=== PATIENT | female | born 1970 | race Caucasian/White ===

== ENCOUNTER 2016-12-13 15:29 | Emergency (ER) | payer BC ==
[2016-12-13] MEDS ORDERED: MAG HYDROX/AL HYDROX/SIMETH 30 ML, HYOSCYAMINE ELIXIR 10 ML, CIMETIDINE HCL 300 MG, LID... PO STA ×4 (16:40)
[2016-12-13 16:52] LABS: Basophils % (A) 0 %; CH 30.4; CHCM 34.6; Eosinophils % (A) 0 %; HCT 43.1 % (34.0-46.0); HDW 2.87; HGB 14.5 gm/dL (11.4-16.0); Luc # (Auto) 0.21; Luc % (Auto) 2; Lymphocytes % (A) 11 %; MCH 29.7 pg (25.0-35.0); MCHC 33.6 g/dL (31.0-37.0); MCV 88.3 fL (80.0-100.0); Mean Platelet Volume 7.4; Monocytes # (A) 0.3 k/uL (0-1.0); Monocytes % (A) 4 %; Neutrophils # (A) 7.9 k/uL (1.3-7.7); Neutrophils % (A) 83 %; RBC 4.88 m/uL (3.80-5.40); RDW 13.5 % (11.5-15.5); WBC 9.5 k/uL (3.8-10.6); WBC (Perox) 9.08
--- NOTE | 2016-12-13 17:02 | XR ---
EXAMINATION TYPE: XR chest 2V DATE OF EXAM: 12/13/2016 4:56 PM COMPARISON: 04/20/2013 TECHNIQUE: PA and lateral views submitted. HISTORY: Chest congestion FINDINGS: The lungs are clear and there is no pneumothorax, pleural effusion, or focal pneumonia. Hyperinflat ion suggests COPD. IMPRESSION: 1. No acute process.
--- NOTE | 2016-12-13 17:13 | ED ---
General Adult HPI - General Chief complaint: Recheck/Abnormal Lab/Rx Stated complaint: Rapid Heart Beat/Burning Time Seen by Provider: 12/13/16 16:36 Source: patient, RN notes reviewed, old records reviewed Mode of arrival: wheelchair Limitations: no limitations - History of Present Illness Initial comments: This is a 38-year-old female ER for evaluation of heart palpitations chest pain fluttering chest pain rating down the middle of her stomach and burning. Patient states she's been doing with cough and upper respiratory infection for a day or so. She did take Sudafed last night with no improvement, did call EMS this morning at about 2 AM and the left runaway as her vital signs are normal and stable. Patient states symptoms have persisted. Denies nausea vomiting does not feel right, still complaining of chest pain although it is episodic. No travel history nor second DVT no significant medical history - Related Data Home Medications Medication Instructions Recorded Confirmed Ibuprofen [Motrin] 800 mg PO Q8HR PRN 09/20/15 12/13/16 Phenylephrine HCl [Sudafed PE] 10 mg PO Q6H PRN 12/13/16 12/13/16 Allergies Allergy/AdvReac Type Severity Reaction Status Date / Time Sulfa (Sulfonamide Allergy Unknown Rash/Hives, Verified 12/13/16 16:24 Antibiotics) Itching Review of Systems ROS Statement: Those systems with pertinent positive or pertinent negative responses have been documented in the HPI. ROS Other: All systems not noted in ROS Statement are negative. Past Medical History Past Medical History: Musculoskeletal Disorder Additional Past Medical History / Comment(s): DEGENERATIVE CERVICAL DISC , BONE SPUR LEFT SHOULDER History of Any Multi-Drug Resistant Organisms: None Reported Past Surgical History: Orthopedic Surgery Additional Past Surgical History / Comment(s): LAPAROSCOPY W/ D&C, D&C, left shoulder Past Anesthesia/Blood Transfusion Reactions: Motion Sickness, Postoperative Nausea & Vomiting (PONV) Past Psychological History: No Psychological Hx Reported Smoking Status: Never smoker Past Alcohol Use History: Occasional Past Drug Use History: None Reported - Past Family History Mother Brother(s) Family Medical History: Cancer Additional Family Medical History / Comment(s): HODGKINS LYMPHOMA General Exam Limitations: no limitations General appearance: alert, in no apparent distress, anxious Head exam: Present: atraumatic, normocephalic, normal inspection Eye exam: Present: normal appearance, PERRL, EOMI. Absent: scleral icterus, conjunctival injection, periorbital swelling ENT exam: Present: normal exam, mucous membranes moist Neck exam: Present: normal inspection. Absent: tenderness, meningismus, lymphadenopathy Respiratory exam: Present: normal lung sounds bilaterally. Absent: respiratory distress, wheezes, rales, rhonchi, stridor Cardiovascular Exam: Present: regular rate, normal rhythm, tachycardia, normal heart sounds. Absent: systolic murmur, diastolic murmur, rubs, gallop, clicks GI/Abdominal exam: Present: soft, normal bowel sounds. Absent: distended, tenderness, guarding, rebound, rigid Extremities exam: Present: normal inspection, full ROM, normal capillary refill. Absent: tenderness, pedal edema, joint swelling, calf tenderness Back exam: Present: normal inspection Neurological exam: Present: alert, oriented X3, CN II-XII intact Psychiatric exam: Present: normal affect, normal mood Skin exam: Present: warm, dry, intact, normal color. Absent: rash Course Vital Signs 12/13/16 12/13/16 12/13/16 15:48 16:37 17:22 Temperature 97.8 F Pulse Rate 89 78 Pulse Rate [ 84 Parent Partner ] Respiratory 20 20 18 Rate Blood Pressure 142/75 143/67 O2 Sat by Pulse 98 99 Oximetry - Reevaluation(s) Reevaluation #1: 12/13/16 18:55 Patient's symptoms resolving with IV fluid, patient has no chest pain no shortness of breath no bowel pain recheck. Reevaluation #2: 12/13/16 18:55 Patient consulted regarding life-threatening causes of pain and tachycardia and palpitations that she was. Experiencing Questions are answered, patient will continue outpatient therapy for bronchitis EKG Findings - EKG Comments: EKG Findings:: EKG shows normal sinus rhythm rate of 75 OK 144, QRS 76, QTC 437 Medical Decision Making - Medical Decision Making 46 female the ER for evaluation of cough and chest pain. Patient has lab work and CT they're normal. Symptoms started last night. She's been outpatient care for bronchitis since yesterday. She did take Sudafed which could have definitely contributed to her symptoms of tachycardia. Otherwise patient at this time is no complaint some shortness of breath no bowel pain no chest pain. No diaphoresis nausea fevers. Patient's labwork is normal can be discharged - Lab Data Result diagrams: 12/13/16 16:35 12/13/16 17:16 Lab Results 12/13/16 12/13/16 12/13/16 Range/Units 16:35 16:35 17:16 WBC 9.5 (3.8-10.6) k/uL RBC 4.88 (3.80-5.40) m/uL Hgb 14.5 (11.4-16.0) gm/dL Hct 43.1 (34.0-46.0) % MCV 88.3 (80.0-100.0) fL MCH 29.7 (25.0-35.0) pg MCHC 33.6 (31.0-37.0) g/dL RDW 13.5 (11.5-15.5) % Plt Count 232 (150-450) k/uL Neutrophils % 83 % Lymphocytes % 11 % Monocytes % 4 % Eosinophils % 0 % Basophils % 0 % Neutrophils # 7.9 H (1.3-7.7) k/uL Lymphocytes # 1.0 (1.0-4.8) k/uL Monocytes # 0.3 (0-1.0) k/uL Eosinophils # 0.0 (0-0.7) k/uL Basophils # 0.0 (0-0.2) k/uL Sodium 141 (137-145) mmol/L Potassium 3.9 (3.5-5.1) mmol/L Chloride 103 (98-107) mmol/L Carbon Dioxide 24 (22-30) mmol/L Anion Gap 14 mmol/L BUN 6 L (7-17) mg/dL Creatinine 0.79 (0.52-1.04) mg/dL Est GFR (MDRD) Af Amer >60 (>60 ml/min/1.73 sqM) Est GFR (MDRD) Non-Af >60 (>60 ml/min/1.73 sqM) Glucose 135 H (74-99) mg/dL Calcium 9.4 (8.4-10.2) mg/dL Total Bilirubin 0.7 (0.2-1.3) mg/dL AST 19 (14-36) U/L ALT 26 (9-52) U/L Alkaline Phosphatase 56 (38-126) U/L Total Creatine Kinase 56 (30-135) U/L CK-MB (CK-2) <0.2 (0.0-2.4) ng/mL CK-MB (CK-2) Rel Index Troponin I <0.012 (0.000-0.034) ng/mL Total Protein 7.8 (6.3-8.2) g/dL Albumin 4.4 (3.5-5.0) g/dL Lipase 80 (23-300) U/L TSH 3.170 (0.465-4.680) mIU/L - Radiology Data Radiology results: report reviewed (Chest x-ray and CT are negative for acute disease, CT might show right upper lobe pneumonia), image reviewed Disposition Clinical Impression: Upper respiratory infection, Palpitations Disposition: HOME SELF-CARE Condition: Good Instructions: Acute Bronchitis (ED), Palpitations (ED) Referrals: Carolyn Gonzalez MD [Primary Care Provider] - 1-2 days
[2016-12-13 17:14] LABS: Creatine Kinase 56 U/L (30-135)
[2016-12-13 17:25] LABS: Creatine Kinase MB <0.2 ng/mL (0.0-2.4); Troponin I <0.012 ng/mL (0.000-0.034)
[2016-12-13 17:32] LABS: ALT 26 U/L (9-52); AST 19 U/L (14-36); Alkaline Phosphatase 56 U/L (38-126); Anion Gap 14 mmol/L; Blood Urea Nitrogen 6 mg/dL (7-17); Calcium 9.4 mg/dL (8.4-10.2); Carbon Dioxide 24 mmol/L (22-30); Chloride 103 mmol/L (98-107); Glucose 135 mg/dL (74-99); Non-African American GFR(MDRD) >60 (>60 ml/min/1.73 sqM); Potassium 3.9 mmol/L (3.5-5.1); Sodium 141 mmol/L (137-145); Total Bilirubin 0.7 mg/dL (0.2-1.3); Total Protein 7.8 g/dL (6.3-8.2)
[2016-12-13] MEDS ORDERED: SODIUM CHLORIDE 0.9% 2,000 ML IV STA (17:32)
[2016-12-13] MEDS: RX INFO: IV CONTRAST WAS GIVEN 1 EACH MISC MISCELLANE PRN (17:45)
--- NOTE | 2016-12-13 18:42 | CT ---
EXAMINATION TYPE: CT angio chest DATE OF EXAM: 12/13/2016 6:37 PM COMPARISON: 04/21/2013 HISTORY: Heart palpitations and chest burning. CT DLP: 544.00 mGycm CONTRAST: CT chest with contrast and 3D reconstruction with MIP imaging is performed with IV Contrast, patient injected with 80 mL of Omnipaque 300. Contrast-enhanced CT of the chest was performed through the course of the pulmonary arteries with emeka g and mediastinal window settings submitted. 3D reconstruction with MIP imaging was also performed. PULMONARY ARTERIES: The pulmonary arteries and their major tributaries are patent. I do not see rome dence for sizable filling defect to suggest pulmonary embolic process. LUNGS: Left upper lobe nodular infiltrate mild in degree is nonspecific. Correlate clinically and pro essence studies are recommended. No evidence for atelectasis. No pulmonary nodule or mass is detected . No pleural effusion. MEDIASTINUM: Thoracic aorta is of normal caliber . The heart is not enlarged. No evidence for media stinal mass. No mediastinal lymph nodes greater than 1cm. HILAR STRUCTURES: No evidence for mass. No hilar lymph nodes greater than 1 cm. UPPER ABDOMEN: No significant abnormality is seen. IMPRESSION: 1. No evidence for Pulmonary embolism at this time. 2.Left upper lobe nodular infiltrate mild in degree is nonspecific. Correlate clinically and progress studies are recommended.
[2016-12-13 18:58] LABS: Partial Thromboplastin Time 22.5 sec (22.0-30.0); Prothrombin Time 10.3 sec (9.0-12.0)
[2016-12-13 19:35] VITALS: BP 139/68; PULSE 82; RESP 16; TEMP 98
== END 2016-12-13 19:34 | disposition home or self-care (01) ==
LOC: EC 15:29
DX: J06.9 Acute upper respiratory infection, unspecified (principal); R00.2 Palpitations; Z88.2 Allergy status to sulfonamides
CPT/HCPCS: 36415; 93005; 85379; 80053; 82550; 82553; 83690; 84443; 84484; 85025; 85610; 85730; 71020; 71275; 96360; 96361; 99285; Q9967

== ENCOUNTER → 2017-02-11 | Outpatient (CLI) | payer BC ==
[2017-02-11 10:17] LABS: Basophils # (A) 0.1 k/uL (0-0.2); Basophils % (A) 1 %; CH 30.7; CHCM 35.3; Eosinophils # (A) 0.2 k/uL (0-0.7); Eosinophils % (A) 2 %; HCT 43.7 % (34.0-46.0); HDW 2.95; Luc # (Auto) 0.13; Luc % (Auto) 2; Lymphocytes # (A) 1.9 k/uL (1.0-4.8); Lymphocytes % (A) 22 %; MCH 30.1 pg (25.0-35.0); MCHC 34.4 g/dL (31.0-37.0); MCV 87.6 fL (80.0-100.0); Mean Platelet Volume 7.4; Monocytes # (A) 0.6 k/uL (0-1.0); Monocytes % (A) 7 %; Neutrophils # (A) 5.6 k/uL (1.3-7.7); Neutrophils % (A) 66 %; RBC 4.99 m/uL (3.80-5.40); RDW 13.7 % (11.5-15.5); WBC 8.5 k/uL (3.8-10.6); WBC (Perox) 8.17
[2017-02-11 10:43] LABS: ALT 18 U/L (9-52); AST 17 U/L (14-36); Alkaline Phosphatase 62 U/L (38-126); Anion Gap 11 mmol/L; Blood Urea Nitrogen 8 mg/dL (7-17); Calcium 9.4 mg/dL (8.4-10.2); Carbon Dioxide 26 mmol/L (22-30); Chloride 105 mmol/L (98-107); Cholesterol 194 mg/dL (<200); Glucose 105 mg/dL (74-99); HDL Cholesterol 53 mg/dL (40-60); Non-African American GFR(MDRD) >60 (>60 ml/min/1.73 sqM); Potassium 3.8 mmol/L (3.5-5.1); Sodium 142 mmol/L (137-145); Total Bilirubin 0.8 mg/dL (0.2-1.3); Total Protein 7.6 g/dL (6.3-8.2); Triglycerides 94 mg/dL (<150)
[2017-02-11 11:26] LABS: Vitamin B12 578 pg/mL (239-931)
== END | disposition home or self-care (01) ==
LOC: LABWHC1 09:09
PROVIDERS: ATTEND Family Medicine
DX: Z00.00 Encounter for general adult medical examination without abnormal findings (principal); R53.83 Other fatigue
CPT/HCPCS: 36415; 80053; 80061; 82607; 83735; 84443; 85025

== ENCOUNTER → 2017-02-15 | Outpatient (CLI) | payer BC ==
--- NOTE | 2017-03-20 12:37 | EM ---
DATE OF SERVICE: AGE: 46Y SEX: F INDICATIONS: EVENT MONITOR DATE OF THE STUDY: 02/15/2017 TO 03/16/2017 The patient was monitored for 4 weeks. The baseline rhythm appeared to be a sinus mechanism. The patient had multiple episodes of sinus tachycardia and sinus bradycardia as well. There is no evidence of any advanced AV block noted. There is no evidence of any sinus pause or sinus arrest noted as well during these 4 weeks. CONCLUSION: 1. This is a 4-week event monitor. 2. Sinus rhythm was baseline mechanism. 3. The patient had multiple episodes of sinus tachycardia. 4. Multiple episodes of sinus bradycardia. 5. There is no evidence of any advanced AV block noted. 6. There is no evidence of sinus pause or sinus arrest. 7. The patient had one episode of paroxysmal atrial tachycardia noted.
== END | disposition home or self-care (01) ==
LOC: RADECHMAIN 11:54
PROVIDERS: ATTEND Family Medicine
DX: I47.1 Supraventricular tachycardia (principal)
CPT/HCPCS: 93270; 93271

== ENCOUNTER → 2017-02-26 | Outpatient (CLI) | payer BC ==
--- NOTE | 2017-02-26 09:44 | US ---
EXAMINATION TYPE: US abdomen complete DATE OF EXAM: 02/26/2017 8:41 AM COMPARISON: NONE CLINICAL HISTORY: R11.0 Nausea,R10.13 Epigastric pain. Abdominal pain, nausea, bloating x 3-4 weeks EXAM MEASUREMENTS: Liver Length: 14.3 cm Gallbladder Wall: 0.4 cm CBD: 0.5 cm Spleen: 11.4 cm Right Kidney: 10.9 x 3.4 x 4.5 cm Left Kidney: 10.5 x 5.3 x 4.9 cm Pancreas: visualized portions appear wnl, limited evaluation due to overlying bowel content Liver: There is a cyst measuring 1.0 x 1.2 x 1.0cm within right lobe liver. Gallbladder: no evidence of stones, GB wall upper limits of normal Evidence for sonographic Rosario's sign: no CBD: wnl Spleen: appears wnl Right Kidney: no evidence of hydronephrosis or mass Left Kidney: no evidence of hydronephrosis or mass Upper IVC: Proximal portion normal Abd Aorta: wnl IMPRESSION: 1. Hepatic cyst.
== END | disposition home or self-care (01) ==
LOC: RADUSWWP 08:13
PROVIDERS: ATTEND Family Medicine
DX: K76.89 Other specified diseases of liver (principal)
CPT/HCPCS: 76700

== ENCOUNTER → 2017-03-21 | Outpatient (CLI) | payer BC ==
--- NOTE | 2017-03-21 11:54 | ECHOF ---
Referral Reason:R01.1 cardiac murmur MEASUREMENTS -------- HEIGHT: 162.6 cm WEIGHT: 72.6 kg BP: 147/81 IVSd: 0.9 cm (0.6 - 1.1) LVIDd: 4.4 cm (3.9 - 5.3) LVPWd: 0.9 cm (0.6 - 1.1) IVSs: 1.3 cm LVIDs: 2.2 cm LVPWs: 1.4 cm Ao Diam: 3.1 cm (2.0 - 3.7) AV Cusp: 2.0 cm (1.5 - 2.6) LA Diam: 3.7 cm (2.7 - 3.8) MV EXCURSION: 17.354 mm (> 18.000) MV EF SLOPE: 126 mm/s (70 - 150) EPSS: 0.5 cm MV E Hans: 1.18 m/s MV DecT: 190 ms MV A Hans: 0.71 m/s MV E/A Ratio: 1.66 AR PHT: 331 ms RAP: 5.00 mmHg RVSP: 15.95 mmHg FINDINGS -------- Sinus rhythm. This was a technically good study. Left ventricular wall thickness is normal. Overall left ventricular systolic function is normal with, an EF between 55 - 60 %. The right ventricle is normal in size and function. The left atrium is normal in size. The right atrium is normal in size. The aortic valve is trileaflet, and appears structurally normal. No aortic stenosis or regurgitation. Trace amount of aortic regurgitation. There is trace mitral regurgitation. Trace tricuspid regurgitation present. The right ventricular systolic pressure, as measured by Doppler, is 15.95mmHg. Pulmonic valve appears structurally normal. The aortic root size is normal. The pericardium is normal. CONCLUSIONS -------- 1. Sinus rhythm. 2. There is trace mitral regurgitation. 3. Trace tricuspid regurgitation present. 4. The right ventricular systolic pressure, as measured by Doppler, is 15.95mmHg. 5. Pulmonic valve appears structurally normal. 6. The aortic root size is normal. 7. The pericardium is normal. 8. This was a technically good study. 9. Left ventricular wall thickness is normal. 10. Overall left ventricular systolic function is normal with, an EF between 55 - 60 %. 11. The right ventricle is normal in size and function. 12. The left atrium is normal in size. 13. The right atrium is normal in size. 14. The aortic valve is trileaflet, and appears structurally normal. No aortic stenosis or regurgitation. 15. Trace amount of aortic regurgitation. POULTRY INSPECTOR: Sun Mary RDCS
== END | disposition home or self-care (01) ==
LOC: RADECHMAIN 08:20
PROVIDERS: ATTEND Family Medicine
DX: I08.8 Other rheumatic multiple valve diseases (principal); R00.2 Palpitations
CPT/HCPCS: 93306

== ENCOUNTER 2017-03-31 17:38 | Emergency (ER) | payer BC ==
[2017-03-31 18:11] VITALS: RESP 18
--- NOTE | 2017-03-31 18:11 | ED ---
General Adult HPI - General Chief complaint: Chest Pain Stated complaint: chest pain Time Seen by Provider: 03/31/17 17:45 Source: patient, RN notes reviewed Mode of arrival: wheelchair Limitations: no limitations - History of Present Illness Initial comments: This is a 46-year-old female presents emergency Department with no significant past medical history. Patient comes in today complaining of chest pain or shortness of breath. Patient states the chest pain is been ongoing for 4 weeks. Patient states she's had Holter monitors and has also had an EGD neither of which has been helpful He why she has chest discomfort. Patient states the chest pain is in the epigastric or lower chest area and it is a achy feeling in nature. Patient states the pain never subsides. Patient states the pain is sometimes associated with shortness of breath sometimes when she exerts herself or shortness of breath gets worse than other times it does not. Patient denies any sweating she did feel little dizzy today and she felt a little nauseous. Patient states currently she has the ache in her chest but she has no shortness of breath. Patient denies any recent fever chills or cough. Patient denies any control pills. Patient denies any recent trips or travel. Patient denies any calf pain or leg swelling. Patient denies abdominal pain patient denies nausea vomiting diarrhea. Patient denies headache patient denies numbness weakness. Patient denies any near syncopal or syncopal episodes. - Related Data Home Medications Medication Instructions Recorded Confirmed Ibuprofen [Motrin] 800 mg PO Q8HR PRN 09/20/15 03/31/17 Allergies Allergy/AdvReac Type Severity Reaction Status Date / Time Sulfa (Sulfonamide Allergy Unknown Rash/Hives, Verified 03/31/17 18:12 Antibiotics) Itching Review of Systems ROS Statement: Those systems with pertinent positive or pertinent negative responses have been documented in the HPI. ROS Other: All systems not noted in ROS Statement are negative. Past Medical History Past Medical History: Musculoskeletal Disorder Additional Past Medical History / Comment(s): DEGENERATIVE CERVICAL DISC , BONE SPUR LEFT SHOULDER History of Any Multi-Drug Resistant Organisms: None Reported Past Surgical History: Orthopedic Surgery Additional Past Surgical History / Comment(s): LAPAROSCOPY W/ D&C, D&C, left shoulder Past Anesthesia/Blood Transfusion Reactions: Motion Sickness, Postoperative Nausea & Vomiting (PONV) Past Psychological History: No Psychological Hx Reported Smoking Status: Never smoker Past Alcohol Use History: Occasional Past Drug Use History: None Reported - Past Family History Mother Brother(s) Family Medical History: Cancer Additional Family Medical History / Comment(s): HODGKINS LYMPHOMA General Exam - General Exam Comments Initial Comments: GENERAL: Patient is well-developed and well-nourished. Patient is nontoxic and well- hydrated and is in no acute distress. ENT: Neck is soft and supple. No significant lymphadenopathy is noted. Oropharynx is clear. Moist mucous membranes. Neck has full range of motion without eliciting any pain. EYES: The sclera were anicteric and conjunctiva were pink and moist. Extraocular movements were intact and pupils were equal round and reactive to light. Eyelids were unremarkable. PULMONARY: Unlabored respirations. Good breath sounds bilaterally. No audible rales rhonchi or wheezing was noted. CARDIOVASCULAR: There is a regular rate and rhythm without any murmurs gallops or rubs. ABDOMEN: Soft and nontender with normal bowel sounds. No palpable organomegaly was noted. There is no palpable pulsatile mass. SKIN: Skin is clear with no lesions or rashes and otherwise unremarkable. NEUROLOGIC: Patient is alert and oriented x3. Cranial nerves II through XII are grossly intact. Motor and sensory are also intact. Normal speech, volume and content. Symmetrical smile. MUSCULOSKELETAL: Normal extremities with adequate strength and full range of motion. No lower extremity swelling or edema. No calf tenderness. LYMPHATICS: No significant lymphadenopathy is noted PSYCHIATRIC: Normal psychiatric evaluation. Normal interpersonal interactions appears functionally intact in deals appropriately with others. No signs of depression. No signs of anxiety. Limitations: no limitations Course Vital Signs 03/31/17 03/31/17 03/31/17 17:39 18:05 19:11 Temperature 98.8 F Pulse Rate 76 73 Respiratory 20 18 18 Rate Blood Pressure 172/81 136/65 O2 Sat by Pulse 98 98 Oximetry 03/31/17 19:56 Temperature Pulse Rate 70 Respiratory 18 Rate Blood Pressure 121/58 O2 Sat by Pulse Oximetry Medical Decision Making - Medical Decision Making EKG shows a normal sinus rhythm at 72 bpm IL interval 148 QRS is 82 QT interval 388 QTC is 424. EKG shows no ST segment elevation or depression or T wave abnormalities are noted. Ultrasound shows no acute abnormality. Chest x-ray shows no acute abnormality. Patient states she has an appointment with cardiology on Radha morning - Lab Data Result diagrams: 03/31/17 18:05 03/31/17 18:05 Lab Results 03/31/17 03/31/17 03/31/17 Range/Units 18:05 18:05 18:05 WBC 9.5 (3.8-10.6) k/uL RBC 4.88 (3.80-5.40) m/uL Hgb 14.5 (11.4-16.0) gm/dL Hct 42.7 (34.0-46.0) % MCV 87.5 (80.0-100.0) fL MCH 29.8 (25.0-35.0) pg MCHC 34.1 (31.0-37.0) g/dL RDW 13.4 (11.5-15.5) % Plt Count 250 (150-450) k/uL Neutrophils % 67 % Lymphocytes % 21 % Monocytes % 6 % Eosinophils % 3 % Basophils % 1 % Neutrophils # 6.4 (1.3-7.7) k/uL Lymphocytes # 2.0 (1.0-4.8) k/uL Monocytes # 0.6 (0-1.0) k/uL Eosinophils # 0.3 (0-0.7) k/uL Basophils # 0.1 (0-0.2) k/uL PT (9.0-12.0) sec INR (<1.1) APTT (22.0-30.0) sec D-Dimer (<0.60) mg/L FEU Sodium 143 (137-145) mmol/L Potassium 3.3 L (3.5-5.1) mmol/L Chloride 103 (98-107) mmol/L Carbon Dioxide 26 (22-30) mmol/L Anion Gap 14 mmol/L BUN 8 (7-17) mg/dL Creatinine 0.82 (0.52-1.04) mg/dL Est GFR (MDRD) Af Amer >60 (>60 ml/min/1.73 sqM) Est GFR (MDRD) Non-Af >60 (>60 ml/min/1.73 sqM) Glucose 111 H (74-99) mg/dL Calcium 9.7 (8.4-10.2) mg/dL Magnesium 2.1 (1.6-2.3) mg/dL Total Bilirubin 0.7 (0.2-1.3) mg/dL AST 17 (14-36) U/L ALT 14 (9-52) U/L Alkaline Phosphatase 68 (38-126) U/L Total Creatine Kinase 144 H (30-135) U/L CK-MB (CK-2) <0.2 (0.0-2.4) ng/mL CK-MB (CK-2) Rel Index Troponin I <0.012 (0.000-0.034) ng/mL Total Protein 7.7 (6.3-8.2) g/dL Albumin 4.6 (3.5-5.0) g/dL Amylase 87 (30-110) U/L Lipase 165 (23-300) U/L / Range/Units 18:05 WBC (3.8-10.6) k/uL RBC (3.80-5.40) m/uL Hgb (11.4-16.0) gm/dL Hct (34.0-46.0) % MCV (80.0-100.0) fL MCH (25.0-35.0) pg MCHC (31.0-37.0) g/dL RDW (11.5-15.5) % Plt Count (150-450) k/uL Neutrophils % % Lymphocytes % % Monocytes % % Eosinophils % % Basophils % % Neutrophils # (1.3-7.7) k/uL Lymphocytes # (1.0-4.8) k/uL Monocytes # (0-1.0) k/uL Eosinophils # (0-0.7) k/uL Basophils # (0-0.2) k/uL PT 10.1 (9.0-12.0) sec INR 1.0 (<1.1) APTT 23.0 (22.0-30.0) sec D-Dimer 0.48 (<0.60) mg/L FEU Sodium (137-145) mmol/L Potassium (3.5-5.1) mmol/L Chloride (98-107) mmol/L Carbon Dioxide (22-30) mmol/L Anion Gap mmol/L BUN (7-17) mg/dL Creatinine (0.52-1.04) mg/dL Est GFR (MDRD) Af Amer (>60 ml/min/1.73 sqM) Est GFR (MDRD) Non-Af (>60 ml/min/1.73 sqM) Glucose (74-99) mg/dL Calcium (8.4-10.2) mg/dL Magnesium (1.6-2.3) mg/dL Total Bilirubin (0.2-1.3) mg/dL AST (14-36) U/L ALT (9-52) U/L Alkaline Phosphatase (38-126) U/L Total Creatine Kinase (30-135) U/L CK-MB (CK-2) (0.0-2.4) ng/mL CK-MB (CK-2) Rel Index Troponin I (0.000-0.034) ng/mL Total Protein (6.3-8.2) g/dL Albumin (3.5-5.0) g/dL Amylase (30-110) U/L Lipase (23-300) U/L Disposition Clinical Impression: Atypical chest pain Disposition: HOME SELF-CARE Condition: Good Instructions: Chest Pain (ED) Referrals: Claire Wolfe MD [Primary Care Provider] - 1-2 days Time of Disposition: 20:21
[2017-03-31 18:24] LABS: Basophils # (A) 0.1 k/uL (0-0.2); Basophils % (A) 1 %; CH 30.7; CHCM 35.3; Eosinophils # (A) 0.3 k/uL (0-0.7); Eosinophils % (A) 3 %; HCT 42.7 % (34.0-46.0); HDW 2.81; HGB 14.5 gm/dL (11.4-16.0); Luc # (Auto) 0.18; Luc % (Auto) 2; Lymphocytes % (A) 21 %; MCH 29.8 pg (25.0-35.0); MCHC 34.1 g/dL (31.0-37.0); MCV 87.5 fL (80.0-100.0); Mean Platelet Volume 7.5; Monocytes # (A) 0.6 k/uL (0-1.0); Monocytes % (A) 6 %; Neutrophils # (A) 6.4 k/uL (1.3-7.7); Neutrophils % (A) 67 %; RBC 4.88 m/uL (3.80-5.40); RDW 13.4 % (11.5-15.5); WBC 9.5 k/uL (3.8-10.6); WBC (Perox) 9.38
--- NOTE | 2017-03-31 18:29 | XR ---
EXAMINATION TYPE: XR chest 2V DATE OF EXAM: 03/31/2017 COMPARISON: 12/13/2016 INDICATION: Chest pain TECHNIQUE: Frontal and lateral views of the chest are obtained. FINDINGS: The heart size is normal. The pulmonary vasculature is normal. The lungs are clear. IMPRESSION: 1. No acute pulmonary process.
[2017-03-31 18:37] LABS: Prothrombin Time 10.1 sec (9.0-12.0)
[2017-03-31 18:49] LABS: ALT 14 U/L (9-52); AST 17 U/L (14-36); Alkaline Phosphatase 68 U/L (38-126); Amylase 87 U/L (30-110); Anion Gap 14 mmol/L; Blood Urea Nitrogen 8 mg/dL (7-17); Calcium 9.7 mg/dL (8.4-10.2); Carbon Dioxide 26 mmol/L (22-30); Chloride 103 mmol/L (98-107); Glucose 111 mg/dL (74-99); Magnesium 2.1 mg/dL (1.6-2.3); Non-African American GFR(MDRD) >60 (>60 ml/min/1.73 sqM); Potassium 3.3 mmol/L (3.5-5.1); Sodium 143 mmol/L (137-145); Total Bilirubin 0.7 mg/dL (0.2-1.3); Total Protein 7.7 g/dL (6.3-8.2)
[2017-03-31 19:02] LABS: Creatine Kinase 144 U/L (30-135)
[2017-03-31 19:15] LABS: Creatine Kinase MB <0.2 ng/mL (0.0-2.4); Troponin I <0.012 ng/mL (0.000-0.034)
--- NOTE | 2017-03-31 19:46 | US ---
EXAMINATION TYPE: US gallbladder DATE OF EXAM: 03/31/2017 COMPARISON: NONE CLINICAL HISTORY: pain. EXAM MEASUREMENTS: Liver Length: 15.2 cm Gallbladder Wall: 0.2 cm CBD: 0.4 cm Right Kidney: 10.4 x 3.4 x 4.4 cm Limited due to bowel gas and pt ate a cookie 2 hours prior to study. Pancreas: appears wnl Liver: appears wnl Gallbladder: appears wnl. No wall thickening or cholelithiasis is evident. No pericholecystic fluid i s evident. Evidence for sonographic Rosario's sign: Yes CBD: appears wnl Right Kidney: appears wnl IMPRESSION: 1. Sonographic Rosario's sign. Correlate for cholecystitis. 2. Sonographic evidence of cholecystitis is not otherwise identified.
[2017-03-31 20:34] VITALS: BP 110/55; PULSE 72; TEMP 97.7
== END 2017-03-31 20:32 | disposition home or self-care (01) ==
LOC: EC 17:38
DX: R07.89 Other chest pain (principal); R06.02 Shortness of breath; R42 Dizziness and giddiness; Z88.2 Allergy status to sulfonamides
CPT/HCPCS: 36415; 71020; 76705; 80053; 82150; 82550; 82553; 83690; 83735; 84484; 85025; 85379; 85610; 85730; 93005; 99285

== ENCOUNTER → 2017-04-04 | Outpatient (CLI) | payer BC ==
--- NOTE | 2017-04-05 11:40 | MM ---
Reason for exam: screening (asymptomatic). Last mammogram was performed 2 years and 10 months ago. History: Patient is nulliparous. Family history of breast cancer in maternal aunt. Physical Findings: A clinical breast exam by your physician is recommended on an annual basis and results should be correlated with mammographic findings. MG 3D Screening Mammo W/Cad Bilateral CC and MLO view(s) were taken. Prior study comparison: June 01, 2014, bilateral MG screening mammo w CAD. February 22, 2012, bilateral digital screening mammo w/CAD. The breast tissue is heterogeneously dense. This may lower the sensitivity of mammography. No significant changes when compared with prior studies. ASSESSMENT: Negative, BI-RAD 1 RECOMMENDATION: Routine screening mammogram of both breasts in 1 year.
== END | disposition home or self-care (01) ==
LOC: RADMAMWWP 16:29
PROVIDERS: ATTEND Family Medicine
DX: Z12.31 Encounter for screening mammogram for malignant neoplasm of breast (principal)
CPT/HCPCS: 77063; G0202

== ENCOUNTER → 2017-04-08 | Outpatient (CLI) | payer BC ==
--- NOTE | 2017-04-08 07:52 | US ---
EXAMINATION TYPE: US pelvis complete transvag DATE OF EXAM: 04/08/2017 COMPARISON: NONE CLINICAL HISTORY: N80.9 Edometreosis,R14.0 abdominal Bloating. rt adnexal pain TECHNIQUE: Transvaginal (TV) and Transabdominal (TA) Date of LMP: March 14 EXAM MEASUREMENTS: Uterus: 6.8 x 4.4 x 5.1cm cm Endometrial Stripe: 0.8 cm Right Ovary: 4.9 x 3.1 x 4.5 cm Left Ovary: 2.6 x 1.5 x 1.8 cm 1. Uterus: Retroverted diffusely heterogeneous echopattern 2. Endometrium: wnl 3. Right Ovary: seen with a 3.4 x 2.4 x 2.6cm complex cyst 4. Left Ovary: wnl 5. Bilateral Adnexa: wnl 6. Posterior cul-de-sac: moderate amount of free fluid with some debris IMPRESSION: 1. Complex cyst right ovary with moderate amount of free fluid which contains some debris. Correlate for a hemorrhagic cyst with rupture. Consider follow-up study in 6 weeks. 2. Uterine myometrial heterogeneity is nonspecific and could reflect small leiomyomatous change.
== END | disposition home or self-care (01) ==
LOC: RADUSWWP 06:57
PROVIDERS: ATTEND Family Medicine
DX: N83.291 Other ovarian cyst, right side (principal); N83.8 Other noninflammatory disorders of ovary, fallopian tube and broad ligament; N85.8 Other specified noninflammatory disorders of uterus
CPT/HCPCS: 76830; 76856

== ENCOUNTER 2017-04-18 02:57 | Emergency (ER) | payer BC ==
[2017-04-18 03:04] VITALS: TEMP 98.1
[2017-04-18] MEDS ORDERED: SODIUM CHLORIDE 0.9% 500 ML IV STA (03:09)
[2017-04-18 03:54] LABS: Basophils # (A) 0.1 k/uL (0-0.2); Basophils % (A) 1 %; CH 30.2; CHCM 35.3; Eosinophils # (A) 0.4 k/uL (0-0.7); Eosinophils % (A) 5 %; HCT 40.7 % (34.0-46.0); HDW 2.91; HGB 14.2 gm/dL (11.4-16.0); Luc # (Auto) 0.13; Luc % (Auto) 2; Lymphocytes # (A) 1.7 k/uL (1.0-4.8); Lymphocytes % (A) 20 %; MCHC 34.8 g/dL (31.0-37.0); MCV 86.1 fL (80.0-100.0); Mean Platelet Volume 7.4; Monocytes # (A) 0.5 k/uL (0-1.0); Monocytes % (A) 6 %; Neutrophils # (A) 5.5 k/uL (1.3-7.7); Neutrophils % (A) 67 %; RBC 4.72 m/uL (3.80-5.40); RDW 13.8 % (11.5-15.5); WBC 8.3 k/uL (3.8-10.6); WBC (Perox) 7.91
[2017-04-18 04:00] LABS: Appearance,Urine Clear (Clear); Bilirubin,Urine Negative (Negative); Glucose,Urine (UA) Negative (Negative); Ketones,Urine Negative (Negative); Leukocyte Esterase,Urine Negative (Negative); Mucus,Urine Rare /hpf; Nitrite,Urine Negative (Negative); PH, Urine 5.5 (5.0-8.0); Particle Count 551; Protein,Urine Negative (Negative); RBC,Urine <1 /hpf (0-5); Specific Gravity,Urine 1.004 (1.001-1.035); Squamous Epithelial Cell,Urine <1 /hpf (0-4); UA Billing (MACRO vs. MICRO) MICRO; Urobilinogen,Urine <2.0 mg/dL (<2.0)
[2017-04-18 04:04] LABS: ALT 14 U/L (9-52); AST 16 U/L (14-36); Alkaline Phosphatase 72 U/L (38-126); Anion Gap 12 mmol/L; Blood Urea Nitrogen 9 mg/dL (7-17); Carbon Dioxide 24 mmol/L (22-30); Chloride 107 mmol/L (98-107); Glucose 108 mg/dL (74-99); Non-African American GFR(MDRD) >60 (>60 ml/min/1.73 sqM); Potassium 3.6 mmol/L (3.5-5.1); Sodium 143 mmol/L (137-145); Total Bilirubin 0.6 mg/dL (0.2-1.3); Total Protein 7.2 g/dL (6.3-8.2)
[2017-04-18 05:20] VITALS: RESP 18
--- NOTE | 2017-04-18 05:21 | CT ---
EXAM: CT Abdomen and Pelvis With Intravenous Contrast. CLINICAL HISTORY: Reason: Pain TECHNIQUE: Axial computed tomography images of the abdomen and pelvis with intravenous contrast. CTDI is 27.16 mGy and DLP is 1063.84 mGy-cm This CT exam was performed using one or more of the following dose reduction techniques: automated exposure control, adjustment of the mA and/or kV according to patient size, and/or use of iterative reconstruction technique. COMPARISON: No relevant prior studies available. FINDINGS: Lower thorax: No acute findings. ABDOMEN: Liver: Scattered rounded subcentimeter hypodense lesions within the liver are too small to fully characterize though most likely represent cysts. Gallbladder and bile ducts: Unremarkable. No calcified stones. No ductal dilation. Pancreas: Unremarkable. No ductal dilation. No mass. Spleen: Unremarkable. No splenomegaly. Adrenals: Unremarkable. No mass. Kidneys and ureters: Unremarkable. No hydronephrosis. No solid mass. PELVIS: Bladder: Unremarkable. No mass. Reproductive: Unremarkable as visualized. Appendix: No findings to suggest acute appendicitis. ABDOMEN + PELVIS: Stomach and bowel: Unremarkable. No obstruction. No mucosal thickening. Peritoneum: Unremarkable. No significant fluid collection. No free air. Lymph nodes: Unremarkable. No enlarged lymph nodes. Vasculature: Unremarkable. No aortic aneurysm. Bones: No acute fracture. IMPRESSION: No acute inflammatory or obstructive process seen within the abdomen or pelvis. No specific findings to account for the patient's symptoms.
--- NOTE | 2017-04-18 05:30 | XR ---
EXAM: XR Chest, 2 Views. CLINICAL HISTORY: Reason: dysrhythmia TECHNIQUE: Frontal and lateral views of the chest. COMPARISON: 03/31/17. FINDINGS: Lungs: Unremarkable. No consolidation. Pleural spaces: Unremarkable. No pneumothorax. Heart: Unremarkable. No cardiomegaly. Mediastinum: Unremarkable. Bones: Unremarkable. No acute fracture. IMPRESSION: Normal chest.
--- NOTE | 2017-04-18 06:09 | ED ---
General Adult HPI - General Chief complaint: Arrhythmia/Palpitations Stated complaint: Abdominal/Back Pain/ Heart Racing Time Seen by Provider: 04/18/17 03:06 Source: patient, family Mode of arrival: ambulatory Limitations: no limitations - History of Present Illness Initial comments: Patient complains of palpitations. She has abdominal pain. She has no nausea or vomiting. She has no lightheadedness or dizziness. Nothing makes her symptoms better or worse. Her palpitations resolved on their own. Palpitations woke her up from sleep. She has no neck pain or stiffness. She has no change in vision or hearing. He denies any sick contacts. She has no pain or swelling the legs. - Related Data Home Medications Medication Instructions Recorded Confirmed Ibuprofen [Motrin] 800 mg PO Q8HR PRN 09/20/15 04/18/17 Allergies Allergy/AdvReac Type Severity Reaction Status Date / Time Sulfa (Sulfonamide Allergy Unknown Rash/Hives, Verified 04/18/17 03:05 Antibiotics) Itching Review of Systems ROS Statement: Those systems with pertinent positive or pertinent negative responses have been documented in the HPI. ROS Other: All systems not noted in ROS Statement are negative. Past Medical History Past Medical History: Musculoskeletal Disorder Additional Past Medical History / Comment(s): DEGENERATIVE CERVICAL DISC , BONE SPUR LEFT SHOULDER, heart palpitations History of Any Multi-Drug Resistant Organisms: None Reported Past Surgical History: Orthopedic Surgery Additional Past Surgical History / Comment(s): LAPAROSCOPY W/ D&C, D&C, left shoulder Past Anesthesia/Blood Transfusion Reactions: Motion Sickness, Postoperative Nausea & Vomiting (PONV) Past Psychological History: No Psychological Hx Reported Smoking Status: Never smoker Past Alcohol Use History: Occasional Past Drug Use History: None Reported - Past Family History Mother Brother(s) Family Medical History: Cancer Additional Family Medical History / Comment(s): HODGKINS LYMPHOMA General Exam Limitations: no limitations General appearance: alert, in no apparent distress Head exam: Present: atraumatic, normocephalic, normal inspection Eye exam: Present: normal appearance, PERRL, EOMI. Absent: scleral icterus, conjunctival injection, periorbital swelling ENT exam: Present: normal exam, mucous membranes moist Neck exam: Present: normal inspection. Absent: tenderness, meningismus, lymphadenopathy Respiratory exam: Present: normal lung sounds bilaterally. Absent: respiratory distress, wheezes, rales, rhonchi, stridor Cardiovascular Exam: Present: regular rate, normal rhythm, normal heart sounds. Absent: systolic murmur, diastolic murmur, rubs, gallop, clicks GI/Abdominal exam: Present: soft, normal bowel sounds. Absent: distended, tenderness, guarding, rebound, rigid Extremities exam: Present: normal inspection, full ROM, normal capillary refill. Absent: tenderness, pedal edema, joint swelling, calf tenderness Back exam: Present: normal inspection Neurological exam: Present: alert, oriented X3, CN II-XII intact Psychiatric exam: Present: normal affect, normal mood Skin exam: Present: warm, dry, intact, normal color. Absent: rash Course Vital Signs 04/18/17 04/18/17 02:59 05:19 Temperature 98.1 F Pulse Rate 83 68 Respiratory 20 18 Rate Blood Pressure 138/81 138/78 O2 Sat by Pulse 98 Oximetry EKG Findings - EKG Comments: EKG Findings:: Twelve-lead EKG is obtained, interpreted by me showing ventricular rate 76 bpm, normal CT interval Jose complexes, no ST elevation or depression, interpreted by me as normal sinus rhythm. Medical Decision Making - Medical Decision Making Patient complains of abdominal pain. She has palpitations. EKG is normal. Her laboratory studies are normal. Her imaging is normal. There is no evidence of an acute emergency condition. She is stable for discharge. - Lab Data Result diagrams: 04/18/17 03:30 04/18/17 03:30 Lab Results 04/18/17 04/18/17 04/18/17 Range/Units 03:30 03:30 03:30 WBC 8.3 (3.8-10.6) k/uL RBC 4.72 (3.80-5.40) m/uL Hgb 14.2 (11.4-16.0) gm/dL Hct 40.7 (34.0-46.0) % MCV 86.1 (80.0-100.0) fL MCH 30.0 (25.0-35.0) pg MCHC 34.8 (31.0-37.0) g/dL RDW 13.8 (11.5-15.5) % Plt Count 244 (150-450) k/uL Neutrophils % 67 % Lymphocytes % 20 % Monocytes % 6 % Eosinophils % 5 % Basophils % 1 % Neutrophils # 5.5 (1.3-7.7) k/uL Lymphocytes # 1.7 (1.0-4.8) k/uL Monocytes # 0.5 (0-1.0) k/uL Eosinophils # 0.4 (0-0.7) k/uL Basophils # 0.1 (0-0.2) k/uL Sodium 143 (137-145) mmol/L Potassium 3.6 (3.5-5.1) mmol/L Chloride 107 (98-107) mmol/L Carbon Dioxide 24 (22-30) mmol/L Anion Gap 12 mmol/L BUN 9 (7-17) mg/dL Creatinine 0.76 (0.52-1.04) mg/dL Est GFR (MDRD) Af Amer >60 (>60 ml/min/1.73 sqM) Est GFR (MDRD) Non-Af >60 (>60 ml/min/1.73 sqM) Glucose 108 H (74-99) mg/dL Calcium 9.0 (8.4-10.2) mg/dL Magnesium 2.0 (1.6-2.3) mg/dL Total Bilirubin 0.6 (0.2-1.3) mg/dL AST 16 (14-36) U/L ALT 14 (9-52) U/L Alkaline Phosphatase 72 (38-126) U/L Troponin I <0.012 (0.000-0.034) ng/mL Total Protein 7.2 (6.3-8.2) g/dL Albumin 4.2 (3.5-5.0) g/dL TSH 5.150 H (0.465-4.680) mIU/L Urine Color Urine Appearance (Clear) Urine pH (5.0-8.0) Ur Specific [place] (1.001-1.035) Urine Protein (Negative) Urine Glucose (UA) (Negative) Urine Ketones (Negative) Urine Blood (Negative) Urine Nitrite (Negative) Urine Bilirubin (Negative) Urine Urobilinogen (<2.0) mg/dL Ur Leukocyte Esterase (Negative) Urine RBC (0-5) /hpf Ur Squamous Epith Cells (0-4) /hpf Urine Mucus (None) /hpf 04/18/17 Range/Units 03:30 WBC (3.8-10.6) k/uL RBC (3.80-5.40) m/uL Hgb (11.4-16.0) gm/dL Hct (34.0-46.0) % MCV (80.0-100.0) fL MCH (25.0-35.0) pg MCHC (31.0-37.0) g/dL RDW (11.5-15.5) % Plt Count (150-450) k/uL Neutrophils % % Lymphocytes % % Monocytes % % Eosinophils % % Basophils % % Neutrophils # (1.3-7.7) k/uL Lymphocytes # (1.0-4.8) k/uL Monocytes # (0-1.0) k/uL Eosinophils # (0-0.7) k/uL Basophils # (0-0.2) k/uL Sodium (137-145) mmol/L Potassium (3.5-5.1) mmol/L Chloride (98-107) mmol/L Carbon Dioxide (22-30) mmol/L Anion Gap mmol/L BUN (7-17) mg/dL Creatinine (0.52-1.04) mg/dL Est GFR (MDRD) Af Amer (>60 ml/min/1.73 sqM) Est GFR (MDRD) Non-Af (>60 ml/min/1.73 sqM) Glucose (74-99) mg/dL Calcium (8.4-10.2) mg/dL Magnesium (1.6-2.3) mg/dL Total Bilirubin (0.2-1.3) mg/dL AST (14-36) U/L ALT (9-52) U/L Alkaline Phosphatase (38-126) U/L Troponin I (0.000-0.034) ng/mL Total Protein (6.3-8.2) g/dL Albumin (3.5-5.0) g/dL TSH (0.465-4.680) mIU/L Urine Color Light Yellow Urine Appearance Clear (Clear) Urine pH 5.5 (5.0-8.0) Ur Specific [place] 1.004 (1.001-1.035) Urine Protein Negative (Negative) Urine Glucose (UA) Negative (Negative) Urine Ketones Negative (Negative) Urine Blood Moderate H (Negative) Urine Nitrite Negative (Negative) Urine Bilirubin Negative (Negative) Urine Urobilinogen <2.0 (<2.0) mg/dL Ur Leukocyte Esterase Negative (Negative) Urine RBC <1 (0-5) /hpf Ur Squamous Epith Cells <1 (0-4) /hpf Urine Mucus Rare H (None) /hpf Disposition Clinical Impression: Palpitations Disposition: HOME SELF-CARE Condition: Good Instructions: Palpitations (ED), Abdominal Pain (ED) Referrals: Claire Wolfe MD [Primary Care Provider] - 1-2 days Time of Disposition: 06:09
[2017-04-18 06:25] VITALS: BP 132/67; PULSE 81
== END 2017-04-18 06:25 | disposition home or self-care (01) ==
LOC: EC 02:57
DX: R00.2 Palpitations (principal); R10.9 Unspecified abdominal pain; Z88.2 Allergy status to sulfonamides
CPT/HCPCS: 99285 ×2; 96360 ×2; 36415; 93005; 80053; 83735; 84443; 84484; 85025; 81001; 71020; 74177; Q9967

== ENCOUNTER → 2017-10-30 | Outpatient (CLI) | payer BC | END | disposition home or self-care (01) | LOC: MMGSC 14:00 | PROVIDERS: ATTEND Obstetrics & Gynecology | DX: G47.00 Insomnia, unspecified (principal); N95.9 Unspecified menopausal and perimenopausal disorder; R53.83 Other fatigue | CPT/HCPCS: 36415; 82670; 83001; 84403 ==

== ENCOUNTER 2021-04-23 | Emergency (ER) | payer BC | END 2021-04-23 11:31 | disposition home or self-care (01) | DX: H57.12 Ocular pain, left eye (principal) ==

== ENCOUNTER → 2022-07-19 | Outpatient (CLI) | payer BC ==
--- NOTE | 2022-07-20 18:10 | MM ---
Reason for Exam: Screening (asymptomatic). Last mammogram was performed 5 year(s) and 4 month(s) ago. Patient History: Menarche at age 10. Patient has no children. Maternal aunt had breast cancer, age 66. Maternal aunt had breast cancer, age 65. Risk Values: Caren 5 year model risk: 1.3%. NCI Lifetime model risk: 9.3%. Prior Study Comparison: 02/22/2012 Bilateral Screening Mammogram, [facility]. 06/01/2014 Bilateral Screening Mammogram, [facility]. 04/04/2017 Bilateral Screening Mammogram, [facility]. Tissue Density: There are scattered fibroglandular densities. Findings: Analyzed By CAD. Pattern appears symmetrical. No significant interval change. No suspicious groups of microcalcifications, spiculated or lobular masses, architectural distortion or other secondary signs of malignancy are mammographically apparent. Overall Assessment: Benign, BI-RAD 2 Management: Screening Mammogram of both breasts in 1 year. A negative mammogram report should not preclude additional follow up of suspicious palpable abnormalities. Patient should continue monthly self breast exam. A clinical breast exam by your physician is recommended on an annual basis and results should be correlated with mammographic findings. Electronically signed and approved by: Olaf Pantoja D.O. Radiologis
== END | disposition home or self-care (01) ==
LOC: RADMAMWWP 16:14
PROVIDERS: ATTEND Obstetrics & Gynecology
DX: Z12.31 Encounter for screening mammogram for malignant neoplasm of breast (principal); Z80.3 Family history of malignant neoplasm of breast
CPT/HCPCS: 77063; 77067

== ENCOUNTER 2023-02-07 06:37 | Emergency (ER) | payer BC ==
--- NOTE | 2023-02-07 06:56 | ED ---
Lower Extremity Injury HPI - General Chief Complaint: Extremity Injury, Lower Stated Complaint: Ankle Injury Time Seen by Provider: 02/07/23 06:38 Source: patient, family, RN notes reviewed Mode of arrival: wheelchair Limitations: no limitations - History of Present Illness Initial Comments: 52-year-old female presents emergency Department with chief complaint of left foot and ankle pain. Patient states that she missed a step rolling over her left foot, ankle region. Patient states that she has quite a bit of pain with weightbearing she denies any prior fractures or sprains for left foot or ankle or proximal leg pain. Patient offers no other associated symptoms. - Related Data Home Medications Medication Instructions Recorded Confirmed Ibuprofen [Motrin] 800 mg PO Q8HR PRN 09/20/15 04/18/17 Allergies Allergy/AdvReac Type Severity Reaction Status Date / Time Sulfa (Sulfonamide Allergy Unknown Rash/Hives, Verified 02/07/23 06:47 Antibiotics) Itching Review of Systems ROS Statement: Those systems with pertinent positive or pertinent negative responses have been documented in the HPI. ROS Other: All systems not noted in ROS Statement are negative. Past Medical History Past Medical History: Musculoskeletal Disorder Additional Past Medical History / Comment(s): DEGENERATIVE CERVICAL DISC , BONE SPUR LEFT SHOULDER, heart palpitations History of Any Multi-Drug Resistant Organisms: None Reported Past Surgical History: Orthopedic Surgery Additional Past Surgical History / Comment(s): LAPAROSCOPY W/ D&C, D&C, left shoulder Past Anesthesia/Blood Transfusion Reactions: Motion Sickness, Postoperative Nausea & Vomiting (PONV) Past Psychological History: No Psychological Hx Reported Smoking Status: Never smoker Past Alcohol Use History: Occasional Past Drug Use History: None Reported - Past Family History Mother Brother(s) Family Medical History: Cancer Additional Family Medical History / Comment(s): HODGKINS LYMPHOMA General Exam Limitations: no limitations General appearance: alert, in no apparent distress Head exam: Present: atraumatic, normocephalic, normal inspection Eye exam: Present: normal appearance, PERRL, EOMI. Absent: scleral icterus, conjunctival injection, periorbital swelling Respiratory exam: Present: normal lung sounds bilaterally. Absent: respiratory distress, wheezes, rales, rhonchi, stridor Cardiovascular Exam: Present: regular rate, normal rhythm, normal heart sounds. Absent: systolic murmur, diastolic murmur, rubs, gallop, clicks Extremities exam: Present: other (Left foot there sinus out lateral portion, moderate swelling, medial and lateral malleoli tenderness neurovascular intact no proximal tib-fib tenderness) Course Vital Signs 02/07/23 06:41 Temperature 97.9 F Pulse Rate 86 Respiratory 18 Rate Blood Pressure 146/85 O2 Sat by Pulse 98 Oximetry Medical Decision Making - Medical Decision Making Was pt. sent in by a medical professional or institution (MARINA Matos, [employer], urgent care, hospital, or skilled nursing...) When possible be specific @ -No Did you speak to anyone other than the patient for history (EMS, parent, family, police, friend...)? What history was obtained from this source @ -No Did you review nursing and triage notes (agree or disagree)? Why? @ -I reviewed and agree with nursing and triage notes Were old charts reviewed (outside hosp., previous admission, EMS record, old EKG, old radiological studies, urgent care reports/EKG's, skilled nursing records)? Report findings @ -No old charts were reviewed Differential Diagnosis (chest pain, altered mental status, abdominal pain women, abdominal pain men, vaginal bleeding, weakness, fever, dyspnea, syncope, headache, dizziness, GI bleed, back pain, seizure, CVA, palpatations, mental health, musculoskeletal)? @ -Ankle sprain, foot sprain, ankle fracture, foot fracture EKG interpreted by me (3pts min.). @ -None X-rays interpreted by me (1pt min.). @ -Left ankle and foot x-ray showing evidence of talus avulsion fracture CT interpreted by me (1pt min.). @ -None done U/S interpreted by me (1pt. min.). @ -None done What testing was considered but not performed or refused? (CT, X-rays, U/S, labs)? Why? @ -None What meds were considered but not given or refused? Why? @ -None Did you discuss the management of the patient with other professionals (professionals i.e. MARINA Matos, [employer], lab, RT, psych nurse, pediatric social worker, aircraft loadmaster superintendent, teacher, recruitment officer, correctional counselor/case manager)? Give summary @ -No Was smoking cessation discussed for >3mins.? @ -No Was critical care preformed (if so, how long)? @ -No Were there social determinants of health that impacted care today? How? (Homelessness, low income, unemployed, alcoholism, drug addiction, transportation, low edu. Level, literacy, decrease access to med. care, snf, rehab)? @ -No Was there de-escalation of care discussed even if they declined (Discuss DNR or withdrawal of care, Hospice)? DNR status @ -No What co-morbidities impacted this encounter? (DM, HTN, Smoking, COPD, CAD, Cancer, CVA, ARF, Chemo, Hep., AIDS, mental health diagnosis, sleep apnea, morbid obesity)? @ -None Was patient admitted / discharged? Hospital course, mention meds given and route, prescriptions, significant lab abnormalities, going to OR and other pertinent info. @ -Discharged patient was splinted and will follow-up with orthopedics as she sees Dr. Messer for left foot fracture Undiagnosed new problem with uncertain prognosis? @ -No Drug Therapy requiring intensive monitoring for toxicity (Heparin, Nitro, Insulin, Cardizem)? @ -No Were any procedures done? @ -No Diagnosis/symptom? @ -Left foot fracture Acute, or Chronic, or Acute on Chronic? @ -Acute Uncomplicated (without systemic symptoms) or Complicated (systemic symptoms)? @ -Uncomplicated Side effects of treatment? @ -No Exacerbation, Progression, or Severe Exacerbation? @ -No Poses a threat to life or bodily function? How? (Chest pain, USA, IA, pneumonia, PE, COPD, DKA, ARF, appy, cholecystitis, CVA, Diverticulitis, Homicidal, Suicidal, threat to staff... and all critical care pts) @ -No Disposition Clinical Impression: Foot fracture, left Disposition: HOME SELF-CARE Condition: Stable Instructions (If sedation given, give patient instructions): Foot Fracture in Adults (ED) Additional Instructions: Please return to the Emergency Department if symptoms worsen or any other concerns. Is patient prescribed a controlled substance at d/c from ED?: No Referrals: Olaf Berry DO [Primary Care Provider] - 1-2 days Branden Messer DO [Doctor of Osteopathic Medicine] - 1-2 days Time of Disposition: 08:04
--- NOTE | 2023-02-07 07:34 | XR ---
EXAMINATION TYPE: XR ankle complete 3 views LT, XR foot complete 3 views LT DATE OF EXAM: 02/07/2023 Comparison: None Clinical History: 52-year-old female pain Findings: Ankle: Small 4 mm density at the dorsal talar neck. Ankle mortise is congruent with preservation distal tibi ofibular overlap. Mild anterior and lateral sided soft tissue swelling noted. Talar dome is intact. N o acute fracture, dislocation seen. Foot: Mild hallux valgus. Minimal degenerative spurring at the first MTP joint. Tiny type I possibly vascul ar. Otherwise, no acute fracture, effusion, or dislocation. Impression: 1. Ankle: Small 4 mm density at the dorsal talar neck. If any point tenderness, a small capsular avul tushar fracture is difficult to exclude. 2. Foot: Hindfoot and ankle soft tissue swelling noted. Otherwise, no additional acute osseous abnorm ality seen.
[2023-02-07 08:18] VITALS: BP 165/87; PULSE 74; RESP 16; TEMP 98
== END 2023-02-07 08:19 | disposition home or self-care (01) ==
LOC: EC 06:37
DX: S92.902A Unspecified fracture of left foot, initial encounter for closed fracture (principal); Z88.2 Allergy status to sulfonamides; X50.9XXA Other and unspecified overexertion or strenuous movements or postures, initial encounter
CPT/HCPCS: 99283

== ENCOUNTER → 2023-03-13 | Outpatient (CLI) | payer BC ==
--- NOTE | 2023-03-13 18:50 | US ---
EXAMINATION TYPE: US kidneys/renal and bladder DATE OF EXAM: 03/13/2023 COMPARISON: None CLINICAL INDICATION: Female, 52 years old with history of R94.4 ABNORMAL RESULTS OF KIDNEY FUNCTION S TUDIES R80.9 PROT; EXAM MEASUREMENTS: Right Kidney: 10.9 x 4.2 x 5.1 cm Left Kidney: 11.2 x 4.8 x 5.3 cm Right Kidney: No hydronephrosis or masses seen Left Kidney: No hydronephrosis or masses seen Bladder: wnl Bilateral Jets seen: Yes Incidental note is made of a right liver lobe cyst measuring 1.5 x 1.4 x 1.5 cm. IMPRESSION: 1. No hydronephrosis. 2. Incidental benign 1.5 cm right hepatic lobe cyst.
== END | disposition home or self-care (01) ==
LOC: RADUSWWP 14:09
PROVIDERS: ATTEND Family Medicine
DX: K76.89 Other specified diseases of liver (principal); R94.4 Abnormal results of kidney function studies; R80.9 Proteinuria, unspecified
CPT/HCPCS: 76770

== ENCOUNTER → 2023-05-24 | Outpatient (CLI) | payer BC ==
[2023-05-24 16:04] LABS: BUN/Creat Ratio 10.33 Ratio (12.00-20.00); Blood Urea Nitrogen 9.3 mg/dL (9.0-27.0); Calcium 10.1 mg/dL (8.7-10.3); Carbon Dioxide 26.9 mmol/L (21.6-31.8); Chloride 103 mmol/L (96-109); Glucose 108 mg/dL (70-110); Potassium 4.7 mmol/L (3.5-5.5); Sodium 141 mmol/L (135-145)
[2023-05-24 21:11] LABS: Appearance,Urine Clear (Clear); Bilirubin,Urine Negative (Negative); Blood,Urine Negative (Negative); Color,Urine Yellow (Yellow); Ketones,Urine Negative (Negative); Nitrite,Urine Negative (Negative); PH, Urine 5.5; Specific Gravity,Urine 1.009 (1.001-1.030); Urobilinogen,Urine 0.2 E.U./DL
[2023-05-24 23:13] LABS: Microalbumin Creatinine Ratio <15 mg/g Cr (0-30)
== END | disposition home or self-care (01) ==
LOC: LABWHC1 08:57
PROVIDERS: ATTEND Family Medicine
DX: R94.4 Abnormal results of kidney function studies (principal); E71.32 Disorders of ketone metabolism
CPT/HCPCS: 36415; 80048; 81003; 82043; 82570; 87086

== ENCOUNTER → 2024-04-06 | Outpatient (CLI) | payer BC ==
[2024-04-06 15:11] LABS: Amylase 85 U/L (23-121); Lipase 49 U/L (14-63)
== END | disposition home or self-care (01) ==
LOC: LABWHC1 10:30
PROVIDERS: ATTEND Nurse Practitioner Family
DX: R10.12 Left upper quadrant pain (principal)
CPT/HCPCS: 36415; 82150; 83690

== ENCOUNTER → 2024-04-06 | Outpatient (CLI) | payer BC ==
--- NOTE | 2024-04-06 10:28 | XR ---
EXAMINATION TYPE: XR chest 2V DATE OF EXAM: 04/06/2024 COMPARISON: 04/18/2017 HISTORY: Shortness of breath TECHNIQUE: Frontal and lateral views of the chest are obtained. FINDINGS: Scattered senescent parenchymal changes noted. No evidence for infiltrate. No evidence for atelectasis. Heart size is stable. Mediastinal structures are stable and grossly unremarkable. No evidence for hilar prominence. Degenerative changes dorsal spine. IMPRESSION: 1. No evidence for acute pulmonary disease.
--- NOTE | 2024-04-06 10:49 | US ---
EXAMINATION TYPE: US abdomen complete DATE OF EXAM: 04/06/2024 COMPARISON: CT CLINICAL INDICATION: Female, 53 years old with history of R10.12 LUQ PAIN; LUQ pain TECHNIQUE: Multiple sonographic images of the abdomen are obtained. FINDINGS: EXAM MEASUREMENTS: Liver Length: 15.9 cm Gallbladder Wall: 0.2 cm CBD: 0.6 cm Spleen: 9.5 cm Right Kidney: 10.3 x 3.9 x 4.5 cm Left Kidney: 10.7 x 4.6 x 5.4 cm PROGRESS MAN NOTES: Pancreas: 5mm panc duct visualized, tail obscured by overlying bowel gas Liver: Multiple probable cysts scattered throughout, largest right posterior lobe= 1.9 x 1.5 x 1.9 c m Gallbladder: wnl Evidence for sonographic Rosario's sign: No CBD: Upper limits of normal Spleen: wnl Right Kidney: wnl Left Kidney: wnl Upper IVC: wnl Abd Aorta: wnl The liver is homogenous. The intrahepatic portion of the IVC and proximal abdominal aorta are within normal limits. There is no evidence of cholelithiasis. Common bile duct is unremarkable. The visu alized portions of the pancreas are homogenous. The spleen is unremarkable. Kidneys are symmetric a nd free of hydronephrosis. No renal lesions are seen. IMPRESSION: 1. No evidence for acute process. 2. Multiple simple appearing hepatic cysts.
== END | disposition home or self-care (01) ==
LOC: RADUSWWP 09:24
PROVIDERS: ATTEND Family Medicine
DX: K76.89 Other specified diseases of liver (principal)
CPT/HCPCS: 71046; 76700

== ENCOUNTER 2024-06-16 10:28 | Day surgery (SDC) | payer BC ==
[~2024-06-16 10:28] MED LIST: LIDOCAINE 1% (10MG/ML) FOR IV START INTRADERMA PRN
[2024-06-16 10:42] VITALS: RESP 16; TEMP 98.4
[2024-06-16] MEDS: IV FLUID CONTINUATION 1,000 ML IV ONE ×2 (10:47→11:01)
[2024-06-16] MEDS: LACTATED RINGERS 1,000 ML IV SCH (10:49)
[2024-06-16] MEDS ORDERED: PROPOFOL 10 MG/ML 20 ML VIAL IV ONE (11:03)
--- NOTE | 2024-06-16 11:10 | P.GSHP ---
History of Present Illness H&P Date: 06/16/24 Chief Complaint: GERD 54-year-old female here for upper endoscopy. Patient with complaints of nighttime reflux and morning coughing. Does not have heartburn. No dysphagia. She did have a small hiatal hernia many years ago on an EGD. Past Medical History Past Medical History: GERD/Reflux, Musculoskeletal Disorder, Osteoarthritis (OA) Additional Past Medical History / Comment(s): DEGENERATIVE CERVICAL DISC, increased heartburn and reflux. History of Any Multi-Drug Resistant Organisms: None Reported Past Surgical History: Orthopedic Surgery Additional Past Surgical History / Comment(s): LAPAROSCOPY W/ D&C, D&C, left shoulder bone spur and rotator cuff, colonoscopy, egd. Past Anesthesia/Blood Transfusion Reactions: Motion Sickness, Postoperative Nausea & Vomiting (PONV) Smoking Status: Never smoker - Past Family History Mother Brother(s) Family Medical History: Cancer Additional Family Medical History / Comment(s): HODGKINS LYMPHOMA Medications and Allergies Home Medications Medication Instructions Recorded Confirmed Type Unk Fish Oil 1 tab PO DAILY 06/11/24 06/11/24 History Unk Multi Vitamin 1 tab PO DAILY 06/11/24 06/11/24 History Allergies Allergy/AdvReac Type Severity Reaction Status Date / Time Sulfa (Sulfonamide Allergy Unknown Rash/Hives, Verified 06/16/24 10:36 Antibiotics) Itching Surgical - Exam Vital Signs Temp Pulse Resp BP Pulse Ox 98.4 F 77 16 139/68 98 06/16/24 10:40 06/16/24 10:40 06/16/24 10:40 06/16/24 10:40 06/16/24 10:40 Physical exam: General: Well-developed, well-nourished HEENT: Normocephalic, sclerae nonicteric Abdomen: Nontender, nondistended Extremities: No edema Neuro: Alert and oriented Assessment and Plan (1) GERD (gastroesophageal reflux disease) Narrative/Plan: Will proceed with upper endoscopy at this time Current Visit: Yes Status: Acute Code(s): K21.9 - GASTRO-ESOPHAGEAL REFLUX DISEASE WITHOUT ESOPHAGITIS SNOMED Code(s): 427006210
--- NOTE | 2024-06-16 11:16 | P.PCN ---
Date of Procedure: 06/16/24 Procedure(s) Performed: Preoperative Dx: GERD Postoperative Dx: Gastritis, hiatal hernia Procedure: EGD with Bx Anesthesia: Sedation Endoscopist: Dr. Gonzalez Specimens: Antrum Endoscopic Procedure: The patient was on the endoscopy table in the left decubitus position. The Olympus gastroscope was inserted into the oropharynx and passed under direct visualization to the region of the third portion of the duodenum. From that point the scope was slowly withdrawn inspecting all surfaces carefully. There were no neoplastic inflammatory or polypoid lesions throughout the duodenum. The pylorus was widely patent. The stomach was carefully inspected. There was mild gastritis present. A biopsy of the antrum took place to rule out H. pylori. Retroflexion revealed a small hiatal hernia. The GE junction was present 1 cm above the diaphragmatic hiatus. There were no inflammatory changes at the esophagus junction. The remainder of the esophagus was then carefully examined. There were no neoplastic inflammatory or polypoid lesions throughout the visualized esophagus. The patient was then taken to the recovery room in stable condition per anesthesia guidelines. Recommendations: Resume diet. Begin prescription antiacid therapy.
[2024-06-16 11:43] VITALS: BP 114/71; PULSE 66
== END 2024-06-16 12:09 | disposition home or self-care (01) ==
LOC: ORWHC2ENDO 10:28
PROVIDERS: ATTEND Surgery
DX: K29.50 Unspecified chronic gastritis without bleeding (principal); K21.00 Gastro-esophageal reflux disease with esophagitis, without bleeding; K44.9 Diaphragmatic hernia without obstruction or gangrene; M19.90 Unspecified osteoarthritis, unspecified site; Z88.1 Allergy status to other antibiotic agents; Z88.2 Allergy status to sulfonamides; Z79.899 Other long term (current) drug therapy
CPT/HCPCS: 43239; 88305